=== PATIENT | female | born 1980 | race Caucasian/White ===

== ENCOUNTER 2019-04-14 09:25 | Outpatient (CLI) | payer BC, SELFPAY ==
--- NOTE | ~2019-04-14 | XR_ITS ---
EXAMINATION: XR shoulder LT min 2V DATE: 04/14/2019 10:00 INDICATION: Left shoulder pain. TECHNIQUE: 4 views of left shoulder were obtained. COMPARISON: None. FINDINGS: Bone alignment is normal. No fracture. There is mild osteoarthritis of glenohumeral joint a nd acromioclavicular joint. IMPRESSION: 1. Mild polyarticular osteoarthritis. Reviewed, dictated and finalized at location A. 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
== END 2019-04-14 09:26 | disposition home or self-care (01) ==
PROVIDERS: PCP Internal Medicine; Visit Provider Physician Assistant
DX: M19.012 Primary osteoarthritis, left shoulder (principal)
CPT/HCPCS: 73030

== ENCOUNTER 2019-09-15 08:51 | Outpatient (CLI) | payer BC, SELFPAY ==
--- NOTE | ~2019-09-15 | MR_ITS ---
EXAMINATION: MR shoulder LT wo con DATE: 09/15/2019 10:07 INDICATION: Lifting injury at work 6 months prior presenting with left shoulder pain TECHNIQUE: Magnetic resonance imaging (MRI) of the left shoulder was performed without intravenous co ntrast. Sequences included axial PD-weighted FS FSE, coronal oblique PD-weighted FS FSE, coronal obli que T2-weighted FS FSE, sagittal PD-weighted FS FSE, and sagittal T1-weighted SE. COMPARISON: None. FINDINGS: Coracoacromial arch: The acromion undersurface is curved in morphology (type II). The coracoacromial ligament is normal. M ild acromioclavicular osteoarthritis. Rotator cuff: Prominent thickening and increased signal consistent with mild to moderate tendinopathy of the distal supraspinatus tendon without discrete tear. The infraspinatus, teres minor and subscapularis tendons are normal. Normal rotator cuff muscle bulk and signal. Biceps tendon, glenoid labrum and glenohumeral cartilage: Long head of the biceps tendon is normal. Small tear at the 10:00-11:00 position of the dose or super ior glenoid labrum. Glenohumeral cartilage is normal. Fluid: Physiologic amount of fluid in the glenohumeral joint and biceps tendon sheath. No loose osteochondra l bodies. Very small amount of fluid in the subacromial/deltoid bursa consistent with minimal bursiti s. Bones: Alignment is normal with normal marrow signal. There are 3 low signal intensity bone islands at the h umeral head. No fracture or pathologic marrow replacing process. IMPRESSION: 1. Moderate tendinopathy without discrete tear at the distal supraspinatus tendon. 2. Small tear at the posterior superior glenoid labrum. 3. Mild acromioclavicular osteoarthritis with minimal underlying subacromial/subdeltoid bursitis. Reviewed, dictated and finalized at location A. IMPRESSION: 1. Moderate tendinopathy without discrete tear at the distal supraspinatus tend on. 2. Small tear at the posterior superior glenoid labrum. 3. Mild acromioclavicular osteoarthritis with minimal underlying subacromial/posey bdeltoid bursitis.
== END 2019-09-15 08:52 | disposition home or self-care (01) ==
LOC: ANHIMG 08:54
PROVIDERS: PCP Internal Medicine; Visit Provider Orthopaedic Surgery
DX: M19.012 Primary osteoarthritis, left shoulder (principal); S43.432A Superior glenoid labrum lesion of left shoulder, initial encounter; X58.XXXA Exposure to other specified factors, initial encounter
CPT/HCPCS: 73221

== ENCOUNTER 2019-12-17 02:29 | Outpatient (CLI) | payer BC, SELFPAY ==
[2019-12-17 23:12] LABS: SARS-CoV-2 RNA PCR Negative
== END 2019-12-17 02:30 | disposition home or self-care (01) ==
LOC: ANHCOVIDDT 02:29
PROVIDERS: PCP Internal Medicine; Visit Provider Orthopaedic Surgery
DX: Z01.812 Encounter for preprocedural laboratory examination (principal); Z20.828 Contact with and (suspected) exposure to other viral communicable diseases
CPT/HCPCS: 87635; C9803; U0003

== ENCOUNTER 2019-12-20 | Day surgery (SDC) | payer BC, SELFPAY ==
[2019-12-06 15:56] VITALS: BMI 34.7
[2019-12-20] VITALS (8 sets, daily range): BP systolic 109–125; BP diastolic 63–75; PULSE 66–110; RESP 16–20; TEMP 36.2–37.2; O2SAT 91–98
--- NOTE | 2019-12-20 09:07 | P.PNAN_ITS ---
Anes - Initial Pre Proc Eval Procedure: Operation Date: 12/20/19 10:30 Proposed Procedures p Left Shoulder Open Acromioplasty, Distal Clavicle Excision, Possible Rotator Cuff Repair - Andre Lua MD Date/Time: 12/20/19 09:07 Surgeon: Andre Lua MD Pre Op Diagnosis: Left AC Arthritis and Impingement Patient Data Age: 39 Gender: F Height: 5 ft 6 in Weight: 97.7 kg Allergies Allergy/AdvReac Type Severity Reaction Status Date / Time aspartame Allergy Severe Anaphylaxis Verified 12/06/19 15:33 aspirin Allergy Severe Anaphylaxis Verified 12/06/19 15:33 [From [place] Aspirin] venom-honey bee Allergy Severe Anaphylaxis Verified 12/06/19 15:33 Home Medications Medication Instructions Recorded Confirmed Type acetaminophen [Tylenol Arthritis 650 mg PO Q8H PRN 12/06/19 12/09/19 History Pain] Patient hx anesthesia problems: none Family hx anesthesia problems: none PMFSH Past Medical History Medical History BMI 35.0-35.9,adult Tobacco abuse Surgical History Surgical History S/P surgery on nasal septum 07/2017 Dr. Rod Hussein Family History Family History Mother Heart disease Diabetes mellitus Hypertension Cancer Grandparent Cerebrovascular accident Social History Social History Smoking packs per day: 0.5 Smoking cigarettes per day: 10.0 Years smoked: 21 Smoking pack-years: 10.50 Smoking status: Current every day smoker Tobacco type: cigarettes Second hand tobacco smoke exposure: Yes Additional smoking assessment comments: Smoking since 1998 Alcohol intake: current Living arrangements: with family Additional living arrangements comments: and Mother Additional occupation/education comments: [employer] Gender identity (if verbalized by the patient): Female Spiritual care concerns: No Anes - Eval Final PreProcedure Day of Procedure 12/20/19 09:07 Patient weight: obese Heart: regular rate and rhythm Lungs: decreased breath sounds Airway: Mallampati scale class II Neurological: alert and oriented Last oral intake: >/= 8 hours ASA classification: III Emergent: no Anesthetic plan: proceed Anesthesia type and monitoring: general ETT and standard monitoring Informed Consent: The patient's anesthetic plan and its attendant risks and benefits were discussed with the patient/family/POA. Questions were solicited and answers provided to the satisfaction of the patient/family/POA.
--- NOTE | 2019-12-20 09:40 | WPDHPUPDATE1 ---
History and Physical Update Update Date/Time: 12/20/19 09:40 History and Physical has been reviewed, including an updated exam of the patient. There are NO changes in the patient's condition. Risks, benefits, and alternatives have been discussed and questions answered. Patient agrees to proceed with procedure.
[2019-12-20] MEDS: LACTATED RINGERS 1,000 ML 30 ML IV CONT ×2 (09:41→12:07)
[2019-12-20] MEDS: ACETAMINOPHEN 500 MG TABLET 1000 MG PO (09:42)
[2019-12-20] MEDS: KETOROLAC 15 MG/ML VIAL (*BKC) IV PUSH (09:43)
--- NOTE | 2019-12-20 10:45 | WPDANESPNB ---
Anes - Peripheral Nerve Block Date/Time: 12/20/19 10:45 I have discussed with the patient/family/POA the placement of a peripheral nerve block for post-operative pain management, including associated risks, benefits, complications, and side effects. Alternative methods of post-operative analgesia were detailed. Questions were solicited and answers provided to the satisfaction of the patient/family/POA. Time-Out: A pre-procedural Time-Out was completed immediately before starting the procedure and confirmed: Patient Identification, Site, Procedure, Patient Position and the Availability of Requisite Equipment. Clinical Indications: Acute post-operative pain management requested by the operative surgeon. Nerve Block Insertion Note Anes-nerve block: interscalene left Patient position: other (sitting) Skin prep: chlorhexidine Needle: 22 gauge, stimulating, insulated echogenic needle. Needle length: 50 mm Technique: nerve stimulation lost at (mA) (0.3) and ultrasound Technique comment: mid2mg,[id number] Injectate: bupivacaine 0.5% with epi 5 mcg/ml (30ml) and dexamethasone (mg) (4mg) Observations: tolerated well Complications: none Procedure start time:: 1020 Procedure end time:: 0
[2019-12-20] MEDS: ceFAZolin 2 GM/D5W 50 ML 2 GM/50 ML BAG IVPB (10:47)
[2019-12-20] MEDS: BUPIVACAINE/EPINEPHRINE 0.25% 50 ML VIAL INFILTRATE (11:23)
--- NOTE | 2019-12-20 11:54 | P.OP_ITS ---
Procedure Note - Detailed Date of procedure: 12/20/19 Pre-op diagnosis: Left AC Arthritis and Impingement Post-op diagnosis: same Procedure performed: Left shoulder open anterior acromioplasty with distal clavicle excision; debridement of the rotator cuff Description of procedure: Patient was identified and proper site identified. In the preop holding area the anesthesia team performed a left upper extremity block. She was then taken to the operating room and transferred to the or table taking care to pad the torso and extremities. After general anesthetic induction and intubation, she was put in a semi beach chair position in the u sual manner for a left shoulder procedure. Her head was secured taking care to neither rotate nor extend the head and neck. The left upper extremity was prepped and draped free in usual sterile fashion. The subcutaneous tissue in the area of the incision was injected with 10 cc of 0.25% Marcaine and epinephrine solution. An oblique anterior incision was made extending from the AC joint distally in line with the fibers of the deltoid. Subcutaneous tissue was sharply dissected down to the deltoid fascia. The deltoid was dissected off the anterior portion of the acromion in the distal end of the clavicle. A 2 cm split was made at the junction between the anterior and middle thirds of the deltoid. Using the microsagittal saw the last 8 mm of clavicle removed. The saw was also used to perform the acromioplasty and then the undersurface of the acromion was rasped smooth. The left rotator cuff was inspected and noted to be intact. There was an abundance of thickened inflamed bursal tissue which was sharply debrided which allowed for full inspection of the cuff. The wound was irrigated with sterile NaCl solution. The deltoid was repaired back to the acromion with 2. Ethibond suture passed through bone and the remainder of the deltoid repair carried out with 2. Vicryl. Subcutaneous tissue was reapproximated with 2. Strata fix and then tissue adhesive used for the skin. Sterile dressing was applied. There were no known intraoperative complications, and perioperative antibiotics were administered. Anesthesia: GETA Surgeon: Andre Lua MD Broadcast Field Supervisor: Evy Ferguson Estimated blood loss (mL): 10 Drains: No Packing: No Pathology: none sent Complications: No immediate complications Condition: stable Disposition: PACU
--- NOTE | 2019-12-20 12:21 | SUR.PHASEI ---
REPORT GIVEN TO AMADOR NARAYANAN
[2019-12-20] MEDS: diphenhydrAMINE HCl INJ 50 MG/ML VIAL 25 MG IV PUSH (12:29)
== END 2019-12-20 13:49 | disposition home or self-care (01) ==
PROVIDERS: PCP Internal Medicine; Visit Provider Orthopaedic Surgery
PROC: (CPT 23420; principal; 2019-12-20 10:30)
DX: M19.012 Primary osteoarthritis, left shoulder (principal); M75.42 Impingement syndrome of left shoulder; G89.18 Other acute postprocedural pain; F17.210 Nicotine dependence, cigarettes, uncomplicated; E66.9 Obesity, unspecified; Z68.34 Body mass index [BMI] 34.0-34.9, adult
CPT/HCPCS: 23120; 23130; 64415; A4565; A9270; J0330; J0690; J1100; J1200; J1885; J2250; J2370; J2405; J2704; J3010; J7120

== ENCOUNTER 2024-05-07 10:00 | Outpatient (CLI) | payer BC, SELFPAY | END 2024-05-07 10:01 | disposition home or self-care (01) | PROVIDERS: PCP Nurse Practitioner; Visit Provider Nurse Practitioner | DX: M51.369 Other intervertebral disc degeneration, lumbar region without mention of lumbar back pain or lower extremity pain (principal) | CPT/HCPCS: 72100 ==

== ENCOUNTER 2024-11-29 07:39 | Outpatient (CLI) | payer BC, SELFPAY ==
--- NOTE | ~2024-11-29 | MR_ITS ---
EXAMINATION: MR lumbar spine wo con DATE: 11/29/2024 08:00 INDICATION: Low back pain. Lumbar radiculopathy. TECHNIQUE: Magnetic resonance imaging (MRI) of the lumbar spine was performed without intravenous contrast. Sequences included sagittal T2-weighted FSE, sagittal T2-weighted FS FSE, sagittal T1-weighted FSE, and axial T2-weighted FSE. COMPARISON: Lumbar spine radiographs 05/07/24 FINDINGS: Alignment is normal. Vertebral body heights are normal. There is mildly decreased disc height at L3-L4 and L4-L5 and moderately decreased disc height at L5-S1. The distal spinal cord signal intensity is normal. The conus medullaris is at T12-L1. The following disc levels are specifically discussed: L1-L2: The disc does not extend beyond the endplate margin. There is mild bilateral facet joint osteoarthritis. There is no neural foraminal stenosis. There is no central canal stenosis. L2-L3: There is a left foraminal protrusion. There is mild bilateral facet joint osteoarthritis. There is mild left neural foraminal stenosis. There is no central canal stenosis. L3-L4: The disc is bulging and has an annular fissure. There is moderate bilateral facet joint osteoarthritis. There is mild bilateral neural foraminal stenosis. There is mild central canal stenosis. L4-L5: The disc is bulging and has an annular fissure. There is severe bilateral facet joint osteoarthritis. There is mild bilateral neural foraminal stenosis. There is mild central canal stenosis. L5-S1: The disc is bulging with superimposed right central extrusion. There is moderate bilateral facet joint osteoarthritis. There is mild bilateral neural foraminal stenosis. There is mild central canal stenosis. IMPRESSION: 1. Moderate lower lumbar spondylosis. Reviewed, dictated and finalized at location E.
== END 2024-11-29 07:40 | disposition home or self-care (01) ==
LOC: MICIMG 07:40
PROVIDERS: PCP Nurse Practitioner; Visit Provider Nurse Practitioner
DX: M47.26 Other spondylosis with radiculopathy, lumbar region (principal)
CPT/HCPCS: 72148

== ENCOUNTER 2025-01-03 07:48 | Outpatient (CLI) | payer BC, SELFPAY ==
--- OUTSIDE RECORDS SUMMARY | 2025-01-03 07:52 | XMS_ITS | Clinical Summary ---
Author Organization [facility] Address [address] [place] [id number] Care Team Providers Care Taxation Consultant Name Role Phone Unavailable Primary Care Provider Unavailabl e Encounters Date Type Department Care Team Description 12/28/2024 External Device Data [facility]STRACTION Provider, Abstract 10/12/2024 External Device Data [facility] Provider, Abstract from Last 3 Months Social History Tobacco Use Types Packs/Day Years Used Date Smoking Tobacco: Never Assessed Comments Unknown Sex and Gender Information Value Date Recorded Sex Assigned at Not on file 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 [employer] Gender Identity Not on file Sexual Orientation Not on file Plan of Treatment Health Maintenance Due Date Last Done Comments Pre-Diabetes and Diabetes Screening 1980 HEPATITIS B VACCINES (1 of 3 - 19+ 3-dose series) 1999 HPV/Cotest (21-29) 2001 HPV VACCINES (1 - 3-dose SCD M series) 2007 CERVICAL CANCER SCREENING 2010 HPV/Cotest (30-65) 2010 PAP SMEAR 2010 DTAP/TDAP/TD VACCINES (1 - Tdap) 02/08/2018 02/08/20 18, 05/08/2017 BREAST CANCER SCREENING 10/19/2021 10/20/19 21, 10/11/2020, 10/11/2020 INFLUENZA VACCINE (#1) [address] [place] [address] [address] [place] [address] [facility]
--- OUTSIDE RECORDS SUMMARY | 2025-01-03 07:53 | XMS_ITS | Clinical Summary ---
Author Organization [address] Address [address] [place] [address] Care Team Providers Care Staff Attorney Name Role Phone Luis A Bhatt NP Primary Care Provider Allergies Active Allergy Reactions Criticality Noted Date Comments Aspirin Anaphylaxis High 07/18/2014 Medications celecoxib (CeleBREX) 200 mg capsule Take 1 capsule (200 mg total) by mouth 2 (two) times a day 4 Active oxyCODONE-aceta minophen (PERCOCET) 5-325 mg per tablet Take 1 tablet by mouth every 6 (six) hours as needed 5 Active rosuvastatin (CRESTOR) 10 mg tablet Take 1 tablet (10 mg total) by mouth daily 4 Active omeprazole (PriLOSEC) 20 mg capsule Take 1 capsule (20 mg total) by mouth daily Active cyclobenzaprine (FLEXERIL) 10 mg tablet Take 1 tablet (10 mg total) by mouth 2 (two) times a day as needed for muscle spasms for up to 7 days 14 tablet 4 Active lidocaine (LIDODERM) 5 % Apply 1 patch topically daily for 7 days Remove after 12 hours (need 12 hour patch free period). 7 patch 4 Active Active Problems Problem Noted Date Diagnosed Date Depressive disorder 02/07/2024 Hyperlipidemia 02/07/2024 Migraine 02/07/2024 Deviated nasal septum 07/03/2017 Overview (02/07/2024): per ENT Chronic obstructive pulmonary disease 05/07/2017 Tobacco use disorder, continuous 09/28/2015 Encounters Date Type Department Care Team Description 12/20/2024 Telephone [facility] Medicine Scheduling [address] [place] [address] Wendy Brown from Last 3 Months Immunizations Immunization Administration Dates Next Due Pneumococcal Polysaccharide PPV23 06/10/2017 TD Preservative Free 02/07/2018 Td, Unspecified 05/08/2017 Surgical History Surgery Date Site/Laterality Comments BREAST BIOPSY 10/23/2020 Left Family History Medical History Relation Name Comments Breast cancer Mother Relation Name Status Comments Mother Alive Social History Tobacco Use Types Packs/Day Years Used Date Smoking Tobacco: Never Assessed Personal Safety Answer Date Recorded Have you ever been in or are you currently in a harmful physical or emotional relationship or is someone making you feel afraid or unsafe? 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 Gender Identity Not on file Sexual Orientation Not on file Obstetrics History Para Term AB IAB SAB Ectopic Multiple Livin g Live Births 0 0 0 0 0 0 0 0 0 0 0 Last Filed Vital Signs Vital Sign Reading Time Taken Comments Blood Pressure 122/64 02/07/2024 9:50 AM TOGGLER Pulse 86 02/07/2024 9:50 AM TOGGLER Temperature 36.9 C (98.5 F) 02/07/2024 9:50 AM TOGGLER Respiratory Rate 18 02/07/2024 9:50 AM TOGGLER Oxygen Saturation 97% 02/07/2024 9:50 AM TOGGLER Inhaled Oxygen Concentration - - Weight 95.3 kg (210 lb) 08/12/2024 9:46 AM CDT Height 165.1 cm (5' 5) 08/12/2024 9:46 AM CDT Body Mass Index 34.95 08/12/2024 9:46 AM CDT Plan of Treatment Health Maintenance Due Date Last Done Comments Cervical Cancer Screening 1980 Depression Screening 1980 Hepatitis C Screening 1980 Varicella Vaccines (1 of 2 - 13+ 2-dose series) 1993 Hepatitis B Screening 1998 Regular Well Visit/Exam 18-64 1998 HPV Vaccines (1 - 3-dose SCDM series) 2007 DTaP/Tdap/Td Vaccine (1 - Tdap) 02/08/2018 8, 05/08/2017 Pneumococcal vaccine <65 (2 of 2 - PCV) 06/10/2018 0 06/10/2017 Influenza Vaccine (#1) 2024 Breast Cancer Screening-Mammogram 08/12/2025 025, 10/11/2020 Procedures Procedure Name Priority Date/Time Associated Diagnosis Comments SCREENING MAMMOGRAM BILATERAL W DALE Schedule Routine, Read Routine (OP Routine) 08/12/2024 9:56 AM CDT Screening mammogram, encounter for from Last 3 Months or Most Recently Relevant to Health Maintenance Results * Screening Mammogram Bilateral W [place] (08/12/2024 9:56 AM CDT) Anatomical Region Laterality Modality Breast Bilateral Mammography Impressions 08/13/2024 12:48 PM CDT Bilateral No evidence of malignancy in either breast. OVERALL BI-RADS FINAL ASSESSMENT: 1 - Negative RECOMMENDATION: Recommend bilateral annual screening mammography. Narrative 08/13/2024 12:48 PM CDT EXAMINATION: Screening Mammogram Bilateral W Dale: 08/12/2024 COMPARISON: Relevant prior studies available at the time of interpretation were reviewed. TECHNIQUE: Mammography was performed with 2D and digital breast tomosynthesis (DBT) images. CAD was utilized. BREAST PARENCHYMAL COMPOSITION: There are scattered areas of fibroglandular density. FINDINGS: Bilateral There is no suspicious mass, calcification, or architectural distortion in either breast. us Self Screening Mammogram IMG MAMMO PROCEDURES Fi nal Result from Last 3 Months or Most Recently Relevant to Health Maintenance Insurance [employer] O[employer] ACCESS OOS Care Teams Staff Attorney Relationship Specialty Start Date End Date Luis A Bhatt NP [address] [place] [address] PCP - General Nurse Practitioner 12/20/24
--- NOTE | 2025-01-03 12:37 | WPDNEUROLOGY ---
Neurology EEG Report General Information Date of Study: 01/03/25 TEST Electroencephalogram DIAGNOSIS possible seizure disorder CONDITION OF RECORDING bedside recording EEG NUMBER [id number] CLINICAL HISTORY patient reports that about 3 weeks ago she had a new onset generalized seizure and went emergency room. Her blood was gone down to 50. EEG DESCRIPTION During wakefulness the background activity consists of posterior dominant alpha rhythm at 10 hertz with amplitude of 20-40 microvolts which appears moderately formed and reactive drive. Anteriorly low amplitude mixed frequency activity was seen. There is a mild anteroposterior gradient. Hyperventilation performed for 3 minutes during which no significant abnormal background changes were noted. Photic studies was performed during which symmetric driving response was seen at a medium and high flash rates. No abnormal changes were seen. Patient did not progress to stage 2 sleep. IMPRESSION This is a normal EEG obtained during awake and sleep states.
== END 2025-01-03 07:49 | disposition home or self-care (01) ==
LOC: ANHNEURO 07:49
PROVIDERS: PCP Nurse Practitioner; Visit Provider Nurse Practitioner
DX: R56.9 Unspecified convulsions (principal)
CPT/HCPCS: 95816